=== PATIENT | male | born 1990 ===

== ENCOUNTER 2016-12-25 16:48 | Emergency (ER) | payer MEDICAID, OTHER ==
[~2016-12-25] VITALS: Ht 182.9 cm; Wt 77.3 kg
--- NOTE | 2016-12-25 17:04 | ED.REPORT ---
HPI-Seizure Date of Service Dec 25, 2016 ED Provider: Mati Hall MD Pt is a 26 y/o male w/ a hx of seizure disorder on Keppra, polysubstance abuse, presenting to the ED via EMS from [facility] due to seizure which occurred prior to arrival. The patient was recently [facility] ago and has been on a meth and heroin binge for the past 3 weeks. He therefore went to [facility] rehab facility where he experienced a witnessed tonic-clonic seizure and was sent here for stabilization. He is supposed to be taking Keppra 1g BID but he has only been taking 500 mg BID because he is about to run out of his medications and was trying to make them last longer. He is also experiencing right leg cramping which has happened in the past. He last used meth this morning. Pt denies SONG. Nursing Notes Stated Complaint: SEIZURE Nursing Notes Reviewed: Yes Allergies: Coded Allergies: No Known Allergies (Unverified Allergy, Unknown, 02/08/14) Scheduled Levetiracetam (Keppra) 1,000 Mg Tablet 1,000 MG PO BID General Time Seen by Provider: 17:05 Chief Complaint Chief Complaint: Seizure, generalized Hx Obtained From: Patient, EMS Arrived By: Ambulance Onset Occurred: Just prior to arrival Symptom Duration: 1 - 15 minutes Progression Since Onset: Resolved Severity: Current: No pain currently Severity: Maximum: No pain Recent Healthcare: Previous diagnosis Similar Sx Previous: Yes Past Medical History Past Medical History Seizure disorder on Keppra Past Surgical History None reported Smoking History Unknown if Ever Smoker Social History Drug Use: Meth, Other Ambulatory Status Independent Review of Systems Neurologic: Reports: Seizure, Denies: Focal weakness, Headache, Numbness Complete sys rev & neg: except as marked. Physical Exam Initial Vital Signs Vital Signs (First) Date Time Temp Pulse Resp B/P Pulse Ox O2 Delivery O2 Flow Rate FiO2 12/25/16 17:05 88 22 132/76 99 Room Air 12/25/16 19:39 36.6 Initial VS: Reviewed Head / Eyes: Atraumatic, Normocephalic ENT: Mucous membranes moist, Conjunctiva normal, No scleral icterus Abdomen / GI: Soft, Non-tender Skin: Warm, Dry, No cyanosis Psychiatric: Mood/affect normal, Behavior normal, Normal thought content General/Constitutional: Awake, Alert, No acute distress, Cooperative, Not toxic appearing Neck: Supple, No meningismus Respiratory / Chest: Breath sounds NL, Breath sounds = bilat, No respiratory distress, No rales, No rhonchi, No wheezing Cardiovascular: Heart rate NL, Regular rhythm, Heart sounds NL, No murmurs Neurologic: Oriented X3, Speech NL, No motor deficits, No sensory deficits, CN II - XII intact, Cerebellar NL, Memory NL Lower Extremity / Pelvis / MS: No deformity, Neurologic intact, Vascular intact Right leg cramping Interpretation & Diagnostics Lab Results Interpretation Result Diagram: 12/25/16 1700 12/25/16 1700 Test 12/25/16 17:00 12/25/16 17:54 12/25/16 18:54 White Blood Count 7.3th/mm3 (3.8-10.1) Red Blood Count 4.69mil/mm3 (4.40-5.80) Hemoglobin 14.4g/dL (13.8-17.2) Hematocrit 41.8% (41.0-50.0) Mean Corpuscular Volume 89.1fL (81-100) Mean Corpuscular Hemoglobin 30.7pg (27.0-35.0) Mean Corpuscular Hemoglobin Concent 34.4% (32.0-37.0) Red Cell Distribution Width 11.5% (12.3-15.4) Platelet Count 239bil/L (150-400) Neutrophils (%) (Auto) 47.1% (40-74) Lymphocytes (%) (Auto) 35.1% (14-46) Monocytes (%) (Auto) 11.6% (4-12) Eosinophils (%) (Auto) 5.3% (0-5) Basophils (%) (Auto) 0.8% (0-3) Sodium Level 141mEq/L (134-144) Potassium Level 4.2mEq/L (3.5-5.2) Chloride Level 98mEq/L (97-108) Carbon Dioxide Level 26mmol/L (18-29) Blood Urea Nitrogen 26mg/dL (6-20) Creatinine 0.92mg/dL (0.76-1.27) Estimat Glomerular Filtration Rate 105mL/min (>59) Glucose Level 66mg/dL (60-99) Calcium Level 9.9mg/dL (8.5-10.1) Total Bilirubin 0.4mg/dL (0.0-1.2) Aspartate Amino Transf (AST/SGOT) 63U/L (0-50) Alanine Aminotransferase (ALT/SGPT) 108U/L (0-44) Alkaline Phosphatase 68U/L (25-150) Total Protein 8.5g/dL (6.4-8.4) Albumin 5.0g/dL (3.4-5.0) Hold Urine Received (Received) ECG Interpretation Time: 19:21 Interpreted by: ED physician Normal ECG Interpretation: Normal ECG w/ rate of... (73), Normal rate, Normal sinus rhythm, No acute ischemic changes, Normal QRS, Normal axis, Normal intervals, Adequate tracing Re-Eval/Medical Decision Med Decision/Clinical Course 26-year-old male history of seizure disorder and methamphetamine abuse presenting with seizure today. [facility] He reports he has not been taking his full dose of Keppra due to being afraid he would run out of his pills. On arrival he is neurological exam is normal. His labs are unremarkable. Patient placed back on his original dose of Keppra with plans to follow up with his neurologist next week. [facility]charged back to [facility]. Re-Evaluation/Progress : Time of Eval: 19:16 Re-Evaluation/Progress Note: Pt rechecked. [facility] Informed pt of plan for discharge. Pt understands and agrees with plan for discharge. F/U instructions and RTER warnings given. All questions addressed. Counseled Regarding: Diagnosis, Lab results, Need for follow-up, When/why to return to ED Discharge & Departure Impression: Primary Impression: Seizure Disposition: Home Discharge Condition All VS Reviewed: Yes Condition: Stable Patient Instructions: Generalized Tonic Clonic Seizures (ED) Additional Instructions: Please resume your regular Keppra dose of 1,000 mg twice daily. More has been prescribed to you so that you can continue your regular dosing. Follow-up with your primary care doctor or neurologist next week for a recheck and to discuss your Keppra. Return to the emergency department if you experience more seizures, severe headache, fever, arm/leg/face numbness or weakness, or for other concerning symptoms. Referrals: NOPCP (PCP) Scribe Attestation Portions of this note were transcribed by Marck Wagoner. I, Dr. Hall personally performed the history, physical exam and medical decision-making; I reviewed and confirmed the accuracy of the information in the transcribed note. Mati Hall MD Dec 25, 2016 17:04 MARCK WAGONER Dec 25, 2016 17:06
[2016-12-25 17:05] VITALS: BP 132/76; PULSE 88; RESP 22; O2SAT 99
[2016-12-25] MEDS ORDERED: 0.9% Sodium Chloride 1,000 ML IV ONE (17:11)
[2016-12-25 17:35] LABS: BASOPHILS % (AUTO) 0.8 % (0-3); EOSINOPHILS % (AUTO) 5.3 % (0-5); MONOCYTES % (AUTO) 11.6 % (4-12); Mean Corpuscular Hemoglobin 30.7 pg (27.0-35.0); Mean Corpuscular Volume 89.1 fL (81-100); NEUTROPHILS % (AUTO) 47.1 % (40-74); Platelet Count 239 bil/L (150-400)
[2016-12-25 18:01] VITALS: BP 126/71; PULSE 76; RESP 15; O2SAT 100
[2016-12-25] MEDS ORDERED: LEVE100014 PO (19:13)
[2016-12-25 19:39] VITALS: BP 112/62; PULSE 59; RESP 16; O2SAT 99
== END 2016-12-25 19:40 | disposition home or self-care (01) ==
LOC: EDUNIT# 16:48 → EDBD 16:48 → SED 16:48
DX: G40.909 Epilepsy, unspecified, not intractable, without status epilepticus (principal); F11.10 Opioid abuse, uncomplicated; F15.10 Other stimulant abuse, uncomplicated
CPT/HCPCS: 36415; 80053; 80299; 82948; 85025; 93005; 96361; 96374; 99285; J2060; J7030